=== PATIENT | female | born 1985 | race Caucasian/White ===

== ENCOUNTER 2023-10-16 11:15 | Outpatient (CLI) | payer BC | END 2023-10-16 11:16 | disposition home or self-care (01) | LOC: BICMAMMO 11:15 | PROVIDERS: ATTEND Nurse Practitioner Family | DX: Z12.31 Encounter for screening mammogram for malignant neoplasm of breast (principal); Z80.3 Family history of malignant neoplasm of breast | CPT/HCPCS: 77063; 77067 ==

== ENCOUNTER 2025-02-02 15:32 | Outpatient (CLI) | payer BC | END 2025-02-02 15:33 | disposition home or self-care (01) | LOC: BICMAMMO 15:32 | PROVIDERS: ATTEND Nurse Practitioner Family | DX: Z12.31 Encounter for screening mammogram for malignant neoplasm of breast (principal); Z80.3 Family history of malignant neoplasm of breast; N64.89 Other specified disorders of breast | CPT/HCPCS: 77063; 77067 ==